=== PATIENT | female | born 1980 | race Caucasian/White ===

== ENCOUNTER 2016-05-12 13:28 | Emergency (ER) | payer OTHER ==
[2016-05-12] MEDS ORDERED: NORMAL SALINE 10 ML SYRINGE FLUSH IVP PRN (13:31)
[2016-05-12] MEDS ORDERED: Sodium Chloride 0.9% 1,000 ML PRIMARY IV ONE (13:32)
[2016-05-12] MEDS ORDERED: MORPHINE SULFATE 4 MG/1 ML IVP ONE ×2 (13:32→15:44)
[2016-05-12 13:46] LABS: BASOPHILS # (AUTO) 0.02 10*3/UL; BASOPHILS % (AUTO) 0.1 % (0-1); EOSINOPHILS % (AUTO) 1.8 % (0-8); HEMATOCRIT 44.8 % (37.0-47.0); HEMOGLOBIN 15.1 g/dL (12.0-16.0); IMM GRAN % (AUTO) 0.3 % (0-5); IMM GRAN# (AUTO) 0.04 10*3/UL; LYMPHOCYTES # (AUTO) 2.65 10*3/uL; MEAN CORPUSCULAR HEMOGLOBIN 30.4 PG (27-31); MEAN CORPUSCULAR HGB CONC 33.7 g/dL (33-37); MEAN PLATELET VOLUME 10.4 FL (7.4-12.2); MONOCYTES # (AUTO) 1.07 10*3/UL (0.3-0.8); MONOCYTES % (AUTO) 7.7 % (5-15); NEUTROPHILS # (AUTO) 9.95 10*3/UL; NEUTROPHILS % (AUTO) 71.1 % (50-80); RDW COEFFICIENT OF VARIATION 13.5 % (11.5-14.5); RED BLOOD COUNT 4.96 10^6/uL (4.20-5.40); WHITE BLOOD COUNT 13.98 10^3/uL (4.8-10.8)
[2016-05-12 13:47] LABS: PLATELET MORPHOLOGY COMMENT NORMAL MORPHOLOGY (NORM)
[2016-05-12 13:56] LABS: PROTHROMBIN TIME 10.7 secs (9.7-11.4)
[2016-05-12 13:57] VITALS: TEMP 98.3
[2016-05-12 13:57] LABS: ASPARTATE AMINO TRANSFERASE 23 IU/L (8-39); BILIRUBIN,TOTAL 0.6 mg/dL (0.3-1.2); BLOOD UREA NITROGEN 13 mg/dL (7-22); BUN/CREATININE RATIO 16.25 (6-20); CALCIUM 9.3 mg/dL (8.7-10.7); CHLORIDE 100 meq/L (98-112); CREATININE 0.8 mg/dL (0.50-1.20); EST GLOMERULAR FILTRATION > 60 (>60 ml/min/1.73m(2)); GLUCOSE 108 mg/dL (78-110); POTASSIUM 3.7 meq/L (3.8-5.2); SODIUM 137 meq/L (135-145); TOTAL PROTEIN 7.3 g/dL (6.1-8.0)
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
[2016-05-12 15:36] VITALS: RESP 18
[2016-05-12] MEDS ORDERED: KETOROLAC 15 MG/1 ML VIAL IVP ONE (15:44)
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
== END 2016-05-12 20:10 | disposition home or self-care (01) ==
LOC: ER 13:28
DX: S20.211A Contusion of right front wall of thorax, initial encounter (principal); V48.6XXA Car passenger injured in noncollision transport accident in traffic accident, initial encounter; Y92.411 Interstate highway as the place of occurrence of the external cause
CPT/HCPCS: 70450; 71260; 72125; 73562; 73610; 74177; 80053; 85025; 85610; 96361; 96374; 96375; 96376; 99283; J1885; J2270; J7030